=== PATIENT | male | born 1935 | race Caucasian/White ===

== ENCOUNTER 2017-02-28 08:47 | Day surgery (SDC) | payer MEDICARE, OTHER ==
[2017-02-28] MEDS ORDERED: Lactated Ringers 1,000 ML IV SCH (09:00)
[2017-02-28] MEDS ORDERED: Sodium Chloride 0.9% 10 ML Syringe FLUSH PRN (09:00)
[2017-02-28] MEDS ORDERED: Propofol 200 MG/20 ML SDV ONE ×2 (10:09→10:11)
[2017-02-28] MEDS ORDERED: Lidocaine 2% 5 ML SDV ONE (10:11)
--- NOTE | 2017-02-28 10:17 | PCM.PN ---
- General Info Date of Service: 02/28/17 - Review of Systems Systems Review Comment:: 81-year-old male is referred for upper endoscopy. He has a several month history of postprandial upper abdominal pain and nausea. He states he also has a history of having had a large ulcer diagnosed in the past. He is medically stable to proceed for the scheduled upper endoscopy. His recent history and physical is reviewed and there is no significant changes noted. I have discussed the proposed upper endoscopy with the patient. He agrees to proceed accepting risks. - Patient Data Vitals - Most Recent: Last Vital Signs Temp 97.7 F 02/28/17 09:25 Pulse 66 02/28/17 09:25 Resp 18 02/28/17 09:25 BP 134/61 02/28/17 09:25 Pulse Ox 95 02/28/17 09:25 Weight - Most Recent: 77.111 kg Med Orders - Current: Current Medications Lactated Ringer's (Ringers, Lactated) 1,000 mls @ 125 mls/hr IV ASDIRECTED JONN Last Admin: 02/28/17 09:55 Dose: 125 mls/hr Sodium Chloride (Saline Flush) 10 ml FLUSH ASDIRECTED PRN PRN Reason: Keep Vein Open Discontinued Medications Propofol (Diprivan 20 Ml) Confirm Administered Dose 200 mg .ROUTE .STK-MED ONE Stop: 02/28/17 10:10 - Problem List Review Problem List Initiated/Reviewed/Updated: Yes - My Orders Last 24 Hours: My Active Orders 02/28/17 09:00 Patient Status [ADT] Routine Peripheral IV Care [RC] . DIRECTED Verify Patient Consent Obtain [RC] ASDIRECTED Lactated Ringers [Ringers, Lactated] 1,000 ml IV ASDIRECTED Sodium Chloride 0.9% [Saline Flush] 10 ml FLUSH ASDIRECTED PRN Peripheral IV Insertion Adult [OM.PC] Routine - Assessment Assessment:: Upper abdominal pain History of peptic ulcer - Plan Plan:: EGD
--- NOTE | 2017-02-28 10:47 | PCM.OPNOTE ---
- General Post-Op/Procedure Note Date of Surgery/Procedure: 02/28/17 Operative Procedure(s): EGD with Biopsy Findings: Small mucosal erosion and scar from previous ulcer in gastric antrum Pre Op Diagnosis: Epigastric pain Post-Op Diagnosis: Gastritis Anesthesia Technique: MAC Primary Surgeon: Fitz Guthrie Pathology: Biopsies of Gastric Antrum Output, Urine Amount: 0 EBL in mLs: 2 Complications: None Condition: Good Free Text/Narrative:: Intake & Output 02/27/17 02/28/17 02/28/17 22:59 06:59 14:59 Intake Total 900 Balance 900
[2017-02-28 14:02] VITALS: BP 131/65
--- NOTE | 2017-02-28 14:14 | OR ---
Date of Procedure: 02/28/2017 PREOPERATIVE DIAGNOSIS: Epigastric pain. POSTOPERATIVE DIAGNOSIS: Gastritis. OPERATION PERFORMED: Esophagogastroduodenoscopy with biopsy. INDICATIONS FOR SURGERY: This 81-year-old male has been having epigastric pain and some postprandial nausea for several months. He states he has history of a large peptic ulcer noted previously. He is referred for upper endoscopy. FINDINGS: In the patient's gastric antrum, there is some hyperemia and scar noted consistent with a healed ulcer in the gastric antrum posteriorly. Near this, there is a superficial gastric erosion 2 to 3 mm in size. No other ulcers are seen. The remainder of the stomach and the visualized portion of the duodenum appeared normal. The esophagus also appeared normal. PROCEDURE IN DETAIL: The patient was taken to the operating room. He was given intravenous sedation and with him in the left lateral decubitus position, the esophagus was intubated with the Olympus gastroscope. The scope was carefully advanced down through the esophagus into the stomach. The scope was then advanced into the duodenum where examination to the third portion was performed. The duodenum appeared normal and the scope was withdrawn back into the stomach where full examination, including retroflexed examination of the fundus was carried out. The findings in the gastric antrum were as noted above and biopsies of this area were taken with the biopsy forceps. After completing the examination of the stomach, the GE junction and esophagus were then carefully examined as the scope was withdrawn. After the scope was removed, the patient was taken from the operating room in satisfactory condition. ESTIMATED BLOOD LOSS: 2 mL. COMPLICATIONS: None. PROGNOSIS: Good. SMITHA Guthrie MD /[id number] LEOLA
== END 2017-02-28 12:05 | disposition home or self-care (01) ==
LOC: LL.SDS 08:47
PROVIDERS: ATTEND Surgery
DX: K25.9 Gastric ulcer, unspecified as acute or chronic, without hemorrhage or perforation (principal); K31.9 Disease of stomach and duodenum, unspecified; Z88.8 Allergy status to other drugs, medicaments and biological substances; Z79.899 Other long term (current) drug therapy; Z87.891 Personal history of nicotine dependence
CPT/HCPCS: 00740; 43239; J2704; J7120; 88305

== ENCOUNTER 2017-07-06 15:51 | Emergency (ER) | payer MEDICARE, OTHER ==
[2017-07-06 16:00] VITALS: BP 168/70
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
[2017-07-06] MEDS ORDERED: Diphtheria,Pertussis(Acell),Tetanus Vaccine 0.5 ML SDV IM ONE (16:34)
== END 2017-07-06 17:49 | disposition home or self-care (01) ==
LOC: LL.ED 15:51
DX: S61.401A Unspecified open wound of right hand, initial encounter (principal); K21.9 Gastro-esophageal reflux disease without esophagitis; Z88.5 Allergy status to narcotic agent; Z88.8 Allergy status to other drugs, medicaments and biological substances; Z87.891 Personal history of nicotine dependence; W34.09XA Accidental discharge from other specified firearms, initial encounter; Y92.009 Unspecified place in unspecified non-institutional (private) residence as the place of occurrence of the external cause; Z23 Encounter for immunization
CPT/HCPCS: 73130-RT; 90471; 90715; 99283; 99284